=== PATIENT | female | born 1975 | race Hispanic/Latino ===

== ENCOUNTER → 2025-01-14 | Day surgery (SDC) | payer OTHER ==
[~2025-01-14] MED LIST: FENTANYL CITRATE/PF 100MCG/2 ML INJ ONE; LACTATED RINGER'S 1,000 ML ONE; LIDOCAINE HCL 2% LOCAL INJ 5 ML SDV VIAL INJ ONE; OMEPRAZOLE40 MG PO; PROPOFOL IV EMULSION 10 MG/ML 20 ML VIAL ONE; PROPOFOL IV EMULSION 50 ML IV ONE
[2025-01-14 14:26] VITALS: TEMP 97.8
[2025-01-14 14:50] VITALS: BP 117/82; PULSE 69; RESP 18; O2SAT 99
== END | disposition home or self-care (01) ==
LOC: OR 12:03
PROVIDERS: ATTEND Internal Medicine Gastroenterology
DX: K29.50 Unspecified chronic gastritis without bleeding (principal); D12.5 Benign neoplasm of sigmoid colon; D17.5 Benign lipomatous neoplasm of intra-abdominal organs; K29.80 Duodenitis without bleeding; K20.90 Esophagitis, unspecified without bleeding; K21.9 Gastro-esophageal reflux disease without esophagitis; K59.09 Other constipation; K64.8 Other hemorrhoids; K76.0 Fatty (change of) liver, not elsewhere classified; D50.8 Other iron deficiency anemias; E66.01 Morbid (severe) obesity due to excess calories; I10 Essential (primary) hypertension; Z71.89 Other specified counseling; Z68.35 Body mass index [BMI] 35.0-35.9, adult; Z71.3 Dietary counseling and surveillance
CPT/HCPCS: 43239; 45380; 45385; J2003; J2470; J2704 ×2; J3010; J7121; 45378

== ENCOUNTER → 2025-01-18 | Outpatient (REF) | payer OTHER ==
[~2025-01-18] MED LIST changes: -FENTANYL CITRATE/PF 100MCG/2 ML INJ ONE; -LACTATED RINGER'S 1,000 ML ONE; -LIDOCAINE HCL 2% LOCAL INJ 5 ML SDV VIAL INJ ONE; -PROPOFOL IV EMULSION 10 MG/ML 20 ML VIAL ONE; -PROPOFOL IV EMULSION 50 ML IV ONE
== END ==
LOC: US 08:43
PROVIDERS: ATTEND Nurse Practitioner
DX: K76.0 Fatty (change of) liver, not elsewhere classified (principal)
CPT/HCPCS: 76700